=== PATIENT | male | born 1995 | race Caucasian/White ===

== ENCOUNTER 2018-09-18 14:34 | Emergency (ER) | payer BC, OTHER ==
[2018-09-18 14:53] VITALS: BP 157/87
--- NOTE | 2018-09-18 15:14 | UC ---
Hand/Wrist HPI - HPI Summary HPI Summary: 23 yo male had his right index finger (distal) injured at work about a week ago Pinched by a cycle spoke NO puncture wound/bleeding He considered accident trivial now for the past few days has been having increased pain and swelling - History Of Current Complaint Chief Complaint: UCUpperExtremity Stated Complaint: RIGHT INDEX FINGER INJURY Time Seen by Provider: 09/18/18 14:48 Hx Obtained From: Patient Onset/Duration: Sudden Onset, Lasting Days Severity Initially: Mild Severity Currently: Moderate Pain Intensity: 6 Pain Scale Used: 0-10 Numeric Character Of Pain: Throbbing Aggravating Factor(s): Movement Alleviating Factor(s): Rest Associated Signs And Symptoms: Positive: Swelling, Redness Related History: Occupational Injury, Dominant Hand Right Hands: 1 - swollen/red - Allergies/Home Medications Allergies/Adverse Reactions: Allergies Allergy/AdvReac Type Severity Reaction Status Date / Time No Known Allergies Allergy Verified 09/18/18 14:50 PMH/Surg Hx/FS Hx/Imm Hx Previously Healthy: Yes - Surgical History Surgical History: None - Family History Known Family History: Positive: Hypertension - Social History Alcohol Use: Occasionally Substance Use Type: None Smoking Status (MU): Never Smoked Tobacco Review of Systems All Other Systems Reviewed And Are Negative: Yes Constitutional: Positive: Negative Skin: Positive: Negative Eyes: Positive: Negative ENT: Positive: Negative Respiratory: Positive: Negative Cardiovascular: Positive: Negative Gastrointestinal: Positive: Negative Genitourinary: Positive: Negative Motor: Positive: Negative Neurovascular: Positive: Negative Musculoskeletal: Positive: Edema Neurological: Positive: Negative Psychological: Positive: Negative Physical Exam Triage Information Reviewed: Yes Appearance: Well-Appearing, No Pain Distress, Well-Nourished Vital Signs: Initial Vital Signs Temp 98.6 F 09/18/18 14:50 Pulse 85 09/18/18 14:50 Resp 16 09/18/18 14:50 BP 157/87 09/18/18 14:50 Pulse Ox 99 09/18/18 14:50 Vital Signs Reviewed: Yes Eyes: Positive: Conjunctiva Clear ENT: Positive: Hearing grossly normal. Negative: Nasal congestion, Nasal drainage, Tonsillar swelling, Tonsillar exudate, Muffled voice, Hoarse voice Neck: Positive: Supple, Nontender Respiratory: Positive: Lungs clear, Normal breath sounds, No respiratory distress, No accessory muscle use Cardiovascular: Positive: RRR, No Murmur Musculoskeletal: Positive: ROM Intact, Edema @ - see image Neurological: Positive: Alert Psychological Exam: Normal Skin Exam: Other - see image Diagnostics - Radiology No standard instances Radiology Interpretation Completed By: Radiologist Summary of Radiographic Findings: no fx or fb Hand/Wrist Course/Dx - Differential Dx/Diagnosis Provider Diagnosis: Cellulitis of right finger, Elevated BP without diagnosis of hypertension Discharge - Sign-Out/Discharge Documenting (check all that apply): Patient Departure All imaging exams completed and their final reports reviewed: Yes - Discharge Plan Condition: Stable Disposition: HOME Prescriptions: Cephalexin CAP* [Keflex CAP*] 500 mg PO QID #28 cap Patient Education Materials: Cellulitis (ED), Warm Compress or Soak (ED) Referrals: [facility] [place] PHYSICIAN REFERRAL [Outside] - 2 Weeks (BP higher than we like to see. I suggest BP recheck in 2-12 weeks) Additional Instructions: recheck in 2-3 days if finger not improved to ER for new or worsening symptoms - Billing Disposition and Condition Condition: STABLE Disposition: Home
== END 2018-09-18 15:45 | disposition home or self-care (01) ==
LOC: UCCORT 14:34
DX: L03.011 Cellulitis of right finger (principal); R03.0 Elevated blood-pressure reading, without diagnosis of hypertension
CPT/HCPCS: 73140; 99202; G0463

== ENCOUNTER 2018-09-19 17:00 | Emergency (ER) | payer OTHER ==
--- NOTE | 2018-09-19 17:30 | ED ---
Upper Extremity Pain - HPI Summary HPI Summary: 23-year-old male presents for wound check for right index finger. He was seen in [facility] and started on Keflex yesterday so has only taken a couple days. He states that there is not been improving. He states he was last night states tried to drain area with no improvement and did not get anything out of it. He denies any spreading redness. No fevers. He states the area has been swelling so is affecting range of motion. He is able to flex his finger. He has no medical conditions. Tetanus up-to-date. He states that a week ago he had a crush injury to the area. He states he denies any puncture wounds to the area that he knows of. - History of Current Complaint Chief Complaint: EDRashSkinAbscess Stated Complaint: NEED RIGHT INDEX FINGER LOOKED AT PER PT Time Seen by Provider: 09/19/18 17:15 - Allergies/Home Medications Allergies/Adverse Reactions: Allergies Allergy/AdvReac Type Severity Reaction Status Date / Time No Known Allergies Allergy Verified 09/19/18 17:13 PMH/Surg Hx/FS Hx/Imm Hx Endocrine/Hematology History: Denies: Hx Anticoagulant Therapy Cardiovascular History: Denies: Hx Myocardial Infarction Infectious Disease History: No Infectious Disease History: Denies: Traveled Outside the [place] in Last 30 Days - Family History Known Family History: Positive: Hypertension - Social History Alcohol Use: Occasionally Substance Use Type: Reports: None Smoking Status (MU): Never Smoked Tobacco Review of Systems Negative: Fever Negative: Chest Pain Negative: Shortness Of Breath Positive: Rash All Other Systems Reviewed And Are Negative: Yes Physical Exam Triage Information Reviewed: Yes Vital Signs On Initial Exam: Initial Vitals Temp Pulse Resp BP Pulse Ox 100 F 81 16 177/91 98 09/19/18 17:11 09/19/18 17:11 09/19/18 17:11 09/19/18 17:11 09/19/18 17:11 Vital Signs Reviewed: Yes Appearance: Positive: Well-Appearing Skin: Positive: Warm, Dry, Other - erythema around distal phalanx of right index finger Head/Face: Positive: Normal Head/Face Inspection Eyes: Positive: Normal, Conjunctiva Clear ENT: Positive: Pharynx normal Respiratory/Lung Sounds: Positive: Clear to Auscultation, Breath Sounds Present Cardiovascular: Positive: Normal, RRR Musculoskeletal: Positive: Strength/ROM Intact - passive ROM intact. able to flex and extend finger, Other - capillary refill<2 secs, good pulses, no fluatance or loculation felt Neurological: Positive: Normal Psychiatric: Positive: Normal Diagnostics - Vital Signs Vital Signs Temp Pulse Resp BP Pulse Ox 09/19/18 17:11 100 F 81 16 177/91 98 - Laboratory Lab Statement: Any lab studies that have been ordered have been reviewed, and results considered in the medical decision making process. Course/Dx - Course Course Of Treatment: 23-year-old male presents for wound check for right index finger. He was seen in [facility] and started on Keflex yesterday so has only taken a couple days. He states that there is not been improving. He states he was last night states tried to drain area with no improvement and did not get anything out of it. He denies any spreading redness. No fevers. He states the area has been swelling so is affecting range of motion. He is able to flex his finger. He has no medical conditions. Tetanus up-to-date. He states that a week ago he had a crush injury to the area. He states he denies any puncture wounds to the area that he knows of. On exam has erythema around distal phalanx of right index finger. Does not extend across flexor tendon. Is able to flex and extend finger. Capillary refill less than 2 seconds. No evidence of a felon or paronychia. Told to continue warm soaks and antibiotics of the area. Told if redness spreads on flexor tendon to return immediately. Patient understands agrees plan. - Diagnoses Differential Diagnosis/HQI/PQRI: Positive: Other - flexor tensynovitis, felon, cellulitis Provider Diagnoses: Cellulitis of right index finger Discharge - Sign-Out/Discharge Documenting (check all that apply): Patient Departure Patient Received Moderate/Deep Sedation with Procedure: No - Discharge Plan Condition: Good Disposition: HOME Patient Education Materials: Cellulitis (ED) Referrals: Jonathan Blood DO [Primary Care Provider] - Cirilo Stallworth MD [Medical Doctor] - Additional Instructions: Do warms soaks of area at least twice a day continue antibiotic ice, elevate Take tyenlol or ibuprofen every 6 days follow up with urgent care for wound check in 2 days a referral was also given to ortho as can follow up with them also Return to ED if develop spreading redness down to palm, fever, or any new or worsening symptoms - Billing Disposition and Condition Condition: GOOD Disposition: Home
[2018-09-19 17:38] VITALS: BP 141/81
== END 2018-09-19 17:38 | disposition home or self-care (01) ==
LOC: ED 17:00
DX: L03.011 Cellulitis of right finger (principal)
CPT/HCPCS: 99282

== ENCOUNTER 2018-09-21 19:22 | Emergency (ER) | payer OTHER ==
--- NOTE | 2018-09-21 20:39 | ED ---
Skin Complaint - HPI Summary HPI Summary: This patient is a 23 year old M presenting to [facility] with a chief complaint of pain, swelling, and infection to the tip of the right index finger for the past four days. He has been taking Keflex as prescribed with no changes. He states the swelling started on the pad of his finger. 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 Pain rated 9/10 inseverity. Denies fever. Denies PMHx. - History of Current Complaint Chief Complaint: EDExtremityUpper Time Seen by Provider: 09/21/18 20:30 Stated Complaint: POSS INFECTED FINGER PER PT Hx Obtained From: Patient Onset/Duration: Started Days Ago Pain Intensity: 9 Pain Scale Used: 0-10 Numeric Skin Location: Other: - right finger Character: Swelling, Pain Alleviating Symptom(s): Nothing - Allergy/Home Medications Allergies/Adverse Reactions: Allergies Allergy/AdvReac Type Severity Reaction Status Date / Time No Known Allergies Allergy Verified 09/19/18 17:13 PMH/Surg Hx/FS Hx/Imm Hx Endocrine/Hematology History: Denies: Hx Anticoagulant Therapy Cardiovascular History: Denies: Hx Myocardial Infarction EENT History: Denies: Hx Deafness - Immunization History Immunizations Up to Date: Yes Infectious Disease History: No Infectious Disease History: Denies: Traveled Outside the [place] in Last 30 Days - Family History Known Family History: Positive: Hypertension - Social History Alcohol Use: Occasionally Substance Use Type: Reports: None Smoking Status (MU): Never Smoked Tobacco Review of Systems Negative: Fever Positive: Other - pain,swelling, redness to R finger All Other Systems Reviewed And Are Negative: Yes Physical Exam - Summary Physical Exam Summary: Appearance: Well-appearing, Well-nourished, lying in bed comfortable Skin: Warm, dry, no obvious rash Eyes: sclera anicteric, no conjunctival pallor ENT: mucous membranes moist Neck: deferred Respiratory: No signs of respiratory distress Cardiovascular: Appears well perfused, pulses are nml Abdomen: deferred Musculoskeletal: Moving all 4 extremities without obvious discomfort, R index finger with obvious felon with marked swelling and redness of the distal phalanx with breakdown of skin and drainage over the pad Neurological: Awake and alert, mentation is normal, speech is fluent and appropriate Psychiatric: affect is normal, does not appear anxious or depressed Triage Information Reviewed: Yes Vital Signs On Initial Exam: Initial Vitals Temp Pulse Resp BP Pulse Ox 99.5 F 88 16 182/105 98 09/21/18 19:33 09/21/18 19:33 09/21/18 19:33 09/21/18 19:33 09/21/18 19:33 Vital Signs Reviewed: Yes Procedures - Procedure Summary Procedure Summary: After digital block was performed with good anesthesia using 2% Xylocaine with epinephrine and 0.5% Marcaine with epinephrine, the pad of the finger was incised with a #11 blade over the area of spontaneous drainage. Moderate amount of pus was expressed from the incision and the wound was probed and loculations were broken up with more pus being expressed. The wound will be left open and dressed. Diagnostics - Vital Signs Vital Signs Temp Pulse Resp BP Pulse Ox 09/21/18 19:33 99.5 F 88 16 182/105 98 - Laboratory Lab Statement: Any lab studies that have been ordered have been reviewed, and results considered in the medical decision making process. Course/Dx - Course Course Of Treatment: 23 year old M presenting to [facility] with a chief complaint of pain, swelling, and infection to the tip of the right index finger for the past four days. He has been taking Keflex as prescribed with no changes. His exam reveals obvious felon with marked swelling and redness of the distal phalanx with breakdown of skin and drainage over the pad of R index finger. At 2038, Dr. Preciado, ortho, recommends I&D. I&D performed. Patient will be discharged home with a prescription for doxycycline and bactrim. He is instructed to follow up with Dr. Preciado on Sunday. Patient is agreeable with this plan. - Diagnoses Provider Diagnoses: Felon of finger of right hand Discharge - Sign-Out/Discharge Documenting (check all that apply): Patient Departure - discharge Patient Received Moderate/Deep Sedation with Procedure: No - Discharge Plan Condition: Good Disposition: HOME Prescriptions: DOXYcycline CAP(*) [DOXYcycline 100MG CAP(*)] 100 mg PO BID #20 cap Sulfamethox/Trimethoprim DS* [Bactrim DS 800/160 TAB*] 1 tab PO BID #20 tab Referrals: José Miguel Preciado MD [Medical Doctor] - 2 Days No Primary Care Phys,NOPCP [Primary Care Provider] - Additional Instructions: Keep the wound with a clean dressing on as it will continue to drain and bleed somewhat over the next day or two. Soaks in warm water are very helpful to promote drainage and liquify and cleanse the debris coming out, do this at least 3 times a day. Contact Dr. Preciado's office on Sunday for followup visit late Sunday or early Sunday to see how it is coming. Hopefully it will be on its way to healing by then, but if not they can do a bigger procedure as needed. - Billing Disposition and Condition Condition: GOOD Disposition: Home - Attestation Statements Document Initiated by Keegan: Yes Documenting Scribe: Jaylin Juarez Provider For Whom Keegan is Documenting (Include Credential): Calderon Mccall MD Scribe Attestation: I, Jaylin Juarez, scribed for Calderon Mccall MD on 09/24/18 at 0820. Scribe Documentation Reviewed: Yes Provider Attestation: The documentation as recorded by the Jaylin perry accurately reflects the service I personally performed and the decisions made by me, Calderon Mccall MD Status of Scribe Document: Viewed
[2018-09-21] MEDS ORDERED: Bupivacaine 0.5% W/EPI SDV* 10 ML VIAL INJ ONE (20:47)
[2018-09-21] MEDS ORDERED: Lidocaine 2% EPI 1:200000 MPF* 10 ML VIAL INJ ONE (20:47)
[2018-09-21] MEDS ORDERED: Lidocaine 2% EPI 1:200000 MPF*10-20 ML VIAL ONE (20:50)
[2018-09-21] MEDS ORDERED: Bupivacaine 0.5% W/EPI SDV* 30 ML VIAL ONE (20:51)
[2018-09-21] MEDS ORDERED: DOXYcycline CAP(*) 100 MG PO ONE (21:13)
[2018-09-21] MEDS ORDERED: Sulfamethox/Trimethoprim DS 800/160* TAB PO ONE (21:13)
[2018-09-21] MEDS ORDERED: Bacitracin OINTMENT* 0.5% 0.5 oz TUBE ONE (21:21)
[2018-09-21] MEDS ORDERED: Bacitracin OINTMENT* 0.5% 0.5 oz TUBE TOPICAL ONE (21:24)
[2018-09-21 22:05] VITALS: BP 153/84
--- NOTE | 2018-09-22 00:50 | PN ---
Progress Note - Progress Note Date of Service: 09/22/18 Note: Microbiology reports that 00:50 09/22 that wound culture for this patient positive for MRSA. Patient provided with a prescription for doxycycline and Bactrim at discharge. No further treatment needed.
--- NOTE | 2018-09-24 05:54 | PN ---
Progress Note - Progress Note Date of Service: 09/24/18 Note: patient final culture sensitivity to doxycycline and Bactrim which patient was placed on.
== END 2018-09-21 22:04 | disposition home or self-care (01) ==
LOC: ED 19:22
DX: L03.011 Cellulitis of right finger (principal)
CPT/HCPCS: 87070; 87077; 87186; 87205; 87640; 87641; 96372; 99282; A9270-GY